=== PATIENT | female | born 1990 | race Caucasian/White ===

== ENCOUNTER → 2019-12-23 | Outpatient (CLI) | payer OTHER | LOC: OD 09:46 | DX: Z31.83 Encounter for assisted reproductive fertility procedure cycle (principal) | CPT/HCPCS: 36415; 82670 ==

== ENCOUNTER → 2020-01-14 | Outpatient (CLI) | payer OTHER | LOC: OD 09:06 | PROVIDERS: ATTEND Specialist | DX: Z31.83 Encounter for assisted reproductive fertility procedure cycle (principal) | CPT/HCPCS: 36415; 82670; 84144 ==

== ENCOUNTER → 2020-01-28 | Outpatient (CLI) | payer OTHER | LOC: OD 09:17 | PROVIDERS: ATTEND Specialist | DX: Z31.83 Encounter for assisted reproductive fertility procedure cycle (principal) | CPT/HCPCS: 36415; 84702 ==

== ENCOUNTER → 2020-01-31 | Outpatient (CLI) | payer OTHER | LOC: OD 09:49 | PROVIDERS: ATTEND Specialist | DX: Z31.83 Encounter for assisted reproductive fertility procedure cycle (principal) | CPT/HCPCS: 36415; 82670; 84144; 84702 ==